=== PATIENT | female | born 1965 | race Caucasian/White ===

== ENCOUNTER → 2017-12-10 | Outpatient (CLI) | payer BC ==
[~2017-12-10] MED LIST: IOHEXOL 240 MG/ML 50ML VIAL. PO ONE; IOHEXOL 300 MG/ML 75 ML VIAL. IV ONE
--- NOTE | 2017-12-10 11:53 | RAD ---
CT ABD PELV W/ORAL IV CONTRAST Indication: RLQ AND PELVIC PAIN FOR 12 HRS. NO PRIOR SURGERIES OR FEVER Exposure: One or more of the following individualized dose reduction techniques were utilized for this examination: 1. Automated exposure control 2. Adjustment of the mA and/or kV according to patient size 3. Use of iterative reconstruction technique. Comparison: None are available. Contrast: Intravenous contrast is given. Oral contrast was given. FINDINGS: Lower thorax: Dense nodule left lung base compatible with granuloma. Liver: Unremarkable Spleen: Unremarkable Pancreas: Unremarkable Adrenals:No evidence of mass. Kidneys:Unremarkable Gallbladder: No calcified stone Aorta: Nonaneurysmal Lymph nodes: No significant enlargement GI tract: Mild diverticulosis. No evidence of acute colitis. No bowel obstruction is suspected. Distended with wall thickening and surrounding inflammation in the fat. The appendix measures 12 mm in diameter. There is an appendicolith at the appendiceal origin. Reproductive organs:No evidence of mass. Urinary bladder: Unremarkable. Peritoneum: No ascites. No evidence of free intraperitoneal gas. No organized fluid collection. Abdominal wall: Tiny fat-containing umbilical hernia. There is a small irregular collection of air within the subcutaneous tissues of the right inferior flank, could be due to superficial soft tissue injury. Spine: Degenerative spondylosis with loss of disk height and spurring. Bones: No destructive process. IMPRESSION: Findings are positive for appendicitis. The appendix is abnormally thickened, with periappendiceal inflammation and an appendicolith. No evidence of abscess or free intraperitoneal gas. Findings were discussed with nurse Pride at 1150 hours p.m. Electronically signed by: Desmond Lea MD (12/10/2017 11:50 AM) [id number]
== END | disposition home or self-care (01) ==
LOC: CT 09:36
PROVIDERS: ATTEND Physician Assistant Medical
DX: K38.1 Appendicular concretions (principal); K42.9 Umbilical hernia without obstruction or gangrene
CPT/HCPCS: 74177; Q9966; Q9967

== ENCOUNTER → 2021-03-17 | Outpatient (CLI) | payer BC ==
--- NOTE | 2021-03-17 16:48 | RAD ---
US PELVIS COMPLETE History: Reason: PELVIC PAIN, OVARIAN CYST / Spl. Instructions: / History: Comparison: CT February 08, 2021 Technique: Grayscale and color Doppler imaging of the pelvis was performed using transabdominal techn ique. Findings: The uterus measures 10.4 x 5.1 x 3.8 cm. Nabothian cysts noted. The endometrial stripe measures 5 mm. Right ovary measures 2.7 x 2.2 x 1.7 cm. Previously identified right ovarian lesion is no longer iden tified. Left ovary measures 3.6 x 3.7 x 1.9 cm. Dominant left ovarian follicle measures 2.8 x 2.5 x 1.9 cm. Normal Doppler flow to the ovaries. No adnexal masses are seen. IMPRESSION: 1. Resolved right ovarian cyst. 2. Dominant left ovarian follicle. Electronically signed by: Moi Samuel DO (03/17/2021 4:45 PM) [id number]
== END ==
LOC: US 10:01
PROVIDERS: ATTEND Physician Assistant Medical
DX: N88.8 Other specified noninflammatory disorders of cervix uteri (principal)
CPT/HCPCS: 76856